=== PATIENT | male | born 1935 | race Caucasian/White ===

== ENCOUNTER 2018-05-08 09:00 | Emergency (ER) | payer MEDICARE ==
[~2018-05-08] VITALS: Ht 167.6 cm; Wt 70.3 kg
[2018-05-08] MEDS ORDERED: SPIR50TA3 PO (09:26)
[2018-05-08] MEDS ORDERED: FURO20TA4 PO (09:26)
[2018-05-08] MEDS ORDERED: AMLO10TA2 PO (09:26)
[2018-05-08] MEDS ORDERED: ALLO100T PO (09:26)
[2018-05-08] MEDS ORDERED: SIMV20TA6 PO (09:26)
[2018-05-08] MEDS ORDERED: MULT-1168 PO (09:26)
[2018-05-08] MEDS ORDERED: FOLI1TAB16 PO (09:26)
[2018-05-08] MEDS ORDERED: LOSA100T15 PO (09:26)
--- NOTE | 2018-05-08 09:44 | NUR ---
Patient says, "I feel much better."Patient discharged to home in stable conditon & braisk steady gait. Written and verbal after care instructions given to patient and spouse. Patient and family verbalized understanding of instructions.
== END 2018-05-08 09:48 | disposition home or self-care (01) ==
LOC: ER 09:00
DX: T78.3XXA Angioneurotic edema, initial encounter (principal); I10 Essential (primary) hypertension; E78.5 Hyperlipidemia, unspecified; Z91.030 Bee allergy status; Z79.899 Other long term (current) drug therapy
CPT/HCPCS: A4663